=== PATIENT | female | born 1965 | race Caucasian/White ===

== ENCOUNTER 2017-05-20 05:39 | Outpatient (CLI) | payer BC ==
[~2017-05-20] VITALS: Ht 165.1 cm; Wt 97.5 kg
== END 2017-05-20 10:40 ==
LOC: PREOP 05:39
PROVIDERS: ATTEND Surgery
DX: Z01.818 Encounter for other preprocedural examination (principal); Z12.11 Encounter for screening for malignant neoplasm of colon

== ENCOUNTER 2017-05-26 07:59 | Day surgery (SDC) | payer BC ==
[~2017-05-26] VITALS: Ht 165.1 cm; Wt 97.5 kg
[2017-05-26] MEDS ORDERED: LACTATED RINGERS 1,000 ML IV STA (08:12)
[2017-05-26] MEDS ORDERED: LACTATED RINGERS 1,000 ML IV ONE (08:35)
[2017-05-26 08:38] VITALS: BP 131/61
[2017-05-26] MEDS ORDERED: MIDAZOLAM 2 MG/2 ML (VERSED) VIAL ONE (08:51)
[2017-05-26] MEDS ORDERED: proPOfol 200 MG/20 ML (DIPRIVAN) VIAL IV ONE (08:51)
--- NOTE | 2017-05-26 09:15 | History & Physical-Surgical ---
HPO-Surgical History of Present Illness Chief Complaint: Screening Colonoscopy Diagnosis/Surgical Indication: screening Procedure: colonoscopy Date of Surgery: May 26, 2017 Weight (Pounds): 215 Weight (Ounces): 0.0 Height (Feet): 5 Height (Inches): 5.00 Allergies and Home Medications Allergies Coded Allergies: No Known Drug Allergies (Unverified , 05/07/12) Past Npthlqp-Bfhqgu-Jezrcg Hx Patient Social History Alcohol Use: Rarely Uses Recreational Drug Use: No Smoking Status: Never a Smoker Recent Foreign Travel: No Contact w/other who traveled: No Recent Hopitalizations: No Recent Infectious Disease Expo: No Immunizations Up To Date Tetanus Booster (TDap): Unknown Seasonal Allergies Seasonal Allergies: No Respiratory Currently Using CPAP: No Currently Using BIPAP: No Neurological Neuropathy Reproductive System Hx Reproductive Disorders: No Sexually Transmitted Disease: No HIV/AIDS: No FPGA ENGINEER History: Menopausal HEENT Loss of Vision: Denies Hearing Impairment: Denies Exam Vital Signs Vital Signs 05/26/17 08:38 Temp 98.1 Pulse 71 Resp 18 B/P (MAP) 131/61 Pulse Ox 96 O2 Delivery Room Air Capillary Refill : General Appearance: Alert, Oriented X3, No Acute Distress HEENT: PERRLA, EOMI Respiratory: Clear to Auscultation, Normal Air Movement Cardiovascular: Regular Rate, No Murmurs Abdominal: Normal Bowel Sounds, Soft, No Tenderness, No Hepatosplenomegaly Extremities: No Clubbing, No Cyanosis, No Edema, Normal Pulses Skin: No Rashes, No Breakdown, No Significant Lesion Neuro: Normal Gait, Normal Speech, Strength at 5/5 X4 Ext, Cranial Nerves 3-12 NL Psych/Mental Status: Mental Status NL Assessment/Plan Assessment and Plan Screening colonoscopy Again discussed with pt the possible risks and complications; not limited to pain, bleeding, infection and even intestinal perforation. All questions answered to her satisfaction. Problems: HERNESTO GARCIA DO May 26, 2017 09:15
[2017-05-26] MEDS ORDERED: fentaNYL INJECTION 100 MCG/2 ML AMP ONE (09:25)
--- NOTE | 2017-05-26 09:52 | Progress Note-Post Operative ---
Post-Operative Progess Note Surgeon (s)/Business Information Consultant (s) Surgeon HERNESTO GARCIA DO Business Information Consultant: none Pre-Operative Diagnosis screening Post-Operative Diagnosis same plus diverticula internal hemorrhoids mucosal changes in ileum possible melanosis coli Procedure & Operative Findings Date of Procedure 05/26/17 Procedure Performed/Findings colon with cold bx Anesthesia Type IV Sedation by Anesthesia Estimated Blood Loss Estimated blood loss (mL): scant Specimens/Packing Specimens Removed TI biopsy HERNESTO GARCIA DO May 26, 2017 09:52
--- NOTE | 2017-05-26 09:53 | Endoscopy Discharge Instruct ---
Endo Procedure/Findings Findings 1.: Diverticulosis 2.: Internal Hemorrhoids 3.: Other Findings (mucosal changes of terminal ileum) 4.: Other Findings (possible eary melanosis coli) Discharge Instructions - Activity: You might feel a little sleepy until tomorrow. This is due to the medicine you received to relax you. Until tomorrow, you should: NOT drive a car, operate machinery or power tools. NOT drink any alcoholic beverages. NOT make any important decisions or sign importortant papers. Do not return to work until tomorrow, unless otherwise instructed. Resume previous activities tomorrow. Diet: Start by taking liquids. If you tolerate liquids, advance to solid food. make an appointment for one week, Notify Physician - If you experience excessive bleeding, unusual abdominal pain, fever, or chest pain, contact your doctor immediately. [phone] Follow-Up: - I have received and understand the above instructions and will call my doctor if I have any further questions. Patient Signature Date Nurse Signature Other (Relationship) HERNESTO GARCIA DO May 26, 2017 09:53
[2017-05-26 09:55] VITALS: BP 116/71
[2017-05-26 10:25] VITALS: BP 124/73
[2017-05-26 10:40] VITALS: BP 124/73
--- NOTE | 2017-05-26 12:02 | OPERATIVE REPORT ---
DATE OF SERVICE: 05/26/2017 PREOPERATIVE DIAGNOSES: Screening colonoscopy. POSTOPERATIVE DIAGNOSES: 1. Diverticula. 2. Internal hemorrhoids. 3. Mucosal changes at the terminal ileum. 4. Possible early melanosis coli. PROCEDURE: Colonoscopy with cold biopsy. SURGEON: Dr. Ingram. DIE MAKER BENCH STAMPING: None. ANESTHESIA: IV sedation by the anesthesiologist. SPECIMEN: Biopsy from the terminal ileum. BLOOD LOSS: Scant. FLUIDS: Per anesthesia. POSTOPERATIVE CONDITION: Stable. INDICATION FOR PROCEDURE: The patient is a 51-year-old female who has never had a colonoscopy, needed a screening. FINDINGS: The patient had some diverticula just a few scattered throughout the sigmoid colon and terminal ileum noted to have some possible mucosal changes so biopsy was done. Also had some very minimal internal hemorrhoids and some possible melanosis coli. PROCEDURE NOTE: After informed consent was obtained, the patient was brought to the endoscopy suite and placed in the left lateral decubitus position. She is administered IV sedation by the anesthesiologist and vitals monitored the entire time by the anesthesiologist. Scope was then inserted, pushed all the way about 150 cm, able to get all the way to cecum. On the way in noted some diverticula and took a picture, able to get all the way to the cecum, took a picture of the appendiceal orifice and then able to get into the terminal ileum. Mucosa in the terminal ileum looked a little bit like had some changes. The villi were kind of thickened, there is no erythema or ulcers. Elected to do a biopsy. did a biopsy here and then slowly withdrew the scope insufflating to look circumferentially of the sarmiento, looking at the cecum up the ascending colon to the hepatic flexure. Saw some possible melanosis changes, took a picture of this as well. Continued down the transverse colon to the splenic flexure, into the descending colon and down into the sigmoid. Here we saw some diverticula. There was no infection or inflammation or erythema. Continued down to the sigmoid into the rectum, retroflexed rectal vault, saw some minimal internal hemorrhoids, took a picture of this and then removed the scope. The patient tolerated the procedure and she was recovered in the endoscopy suite. Job ID: [id number] DocumentID: [id number] Dictated Date: 05/26/2017 09:56:58 Radiology Director Date: 05/26/2017 12:01:23 Dictated By: HERNESTO INGRAM DO
== END 2017-05-26 10:40 | disposition home or self-care (01) ==
LOC: ENDO 07:59
PROVIDERS: ATTEND Surgery
DX: Z12.11 Encounter for screening for malignant neoplasm of colon (principal); K57.30 Diverticulosis of large intestine without perforation or abscess without bleeding; K64.8 Other hemorrhoids; E66.9 Obesity, unspecified; Z68.35 Body mass index [BMI] 35.0-35.9, adult

== ENCOUNTER → 2018-08-11 | Outpatient (CLI) | payer BC ==
[~2018-08-11] MED LIST: IOHEXOL 350 MG/ML 100 ML (OMNIPAQUE 350) VIAL IV ONE; NS 100 ML (IVPB) BAG IV ONE; RECEIVED CONTRAST (Hold Metformin) IV SCH
[2018-08-11 10:56] LABS: BILIRUBIN,URINE NEGATIVE (NEGATIVE); CLARITY,URINE CLEAR; COLOR,URINE YELLOW; GLUCOSE, URINE (UA) 4+ (NEGATIVE); KETONES,URINE 4+ (NEGATIVE); LEUKOCYTE ESTERASE ,URINE NEGATIVE (NEGATIVE); NITRITE,URINE NEGATIVE (NEGATIVE); PH,URINE 6 (5-9); PROTEIN,URINE 3+ (NEGATIVE); UROBILINOGEN,URINE NORMAL (NORMAL)
[2018-08-11 11:07] LABS: BACTERIA,URINE FEW /HPF
[2018-08-11 11:16] LABS: HEMOGLOBIN 13.7 G/DL (11.5-16.0); MEAN PLATELET VOLUME 11.4 FL (7.4-10.4); RED BLOOD COUNT 4.56 10^6/uL (4.35-5.85); WHITE BLOOD COUNT 6.9 10^3/uL (4.3-11.0)
[2018-08-11 11:36] LABS: BILIRUBIN,TOTAL 0.6 MG/DL (0.1-1.0); CALCIUM 9.1 MG/DL (8.5-10.1); CREATININE SERUM 1.33 MG/DL (0.60-1.30); POTASSIUM 4.2 MMOL/L (3.6-5.0); TOTAL PROTEIN 7.2 GM/DL (6.4-8.2)
--- NOTE | 2018-08-11 13:35 | Diagnostic Imaging Report ---
PROCEDURE: CT abdomen and pelvis with contrast. TECHNIQUE: Multiple contiguous axial images were obtained through the abdomen and pelvis after administration of intravenous contrast. DATE: August 11, 2018. COMPARISON: None. INDICATION: 53-year-old female, abdominal pain. FINDINGS: There is very mild dependent atelectasis in the visualized lung bases. The heart is not enlarged. There is no identified pericardial effusion. The liver is normal in size and contour. The liver appears diffusely decreased in attenuation suggesting diffuse fatty infiltration of the liver. The outer liver contours are not grossly nodular. The main, right, and left portal veins are patent. There is no identified liver lesion. The gallbladder is unremarkable. There is no identified intrahepatic or extrahepatic bile duct dilation. The main pancreatic duct is not abnormally dilated. Unremarkable appearance of the pancreatic parenchyma. The spleen is normal in size. The adrenal glands are unremarkable. Unremarkable appearance of the renal parenchyma. The urinary collecting systems are not distended. There is no identified renal or ureteral stone. The urinary bladder is unremarkable in appearance. The intestinal tract is not distended. The appendix is best seen on axial image 57 and adjacent sequential images. There is no evidence of acute appendicitis. There is no free intraperitoneal air. There is no drainable fluid collection. There is no free pelvic fluid. There is no identified abnormally enlarged lymph node within the abdomen or pelvis which meets CT size criteria for adenopathy. There are degenerative changes of the lumbar spine. There is mild grade 1 anterolisthesis of L4 on L5 relating to facet degenerative changes. There is no identified acute bony abnormality. IMPRESSION: CT ABDOMEN AND PELVIS. 1. The liver appears diffusely low in attenuation suggesting possible diffuse fatty infiltration of the liver. 2. No identified acute abnormality within the abdomen or pelvis. Dictated by: Dictated on workstation # [id number]
== END ==
LOC: RAD 10:35
PROVIDERS: ATTEND Internal Medicine
DX: D64.9 Anemia, unspecified (principal); R53.83 Other fatigue; R10.84 Generalized abdominal pain
CPT/HCPCS: 36415; 74177; 80053; 81000; 82150; 82728; 83036; 83540; 83690; 85027; 85652; 86141

== ENCOUNTER → 2021-06-12 | Outpatient (CLI) | payer BC ==
--- NOTE | 2021-06-12 15:49 | Diagnostic Imaging Report ---
INDICATION: Routine screening. COMPARISON: No prior mammograms are available for comparison. This is a baseline study. EXAMINATION: 2D and 3D bilateral screening mammography was performed with CAD. The current study was also evaluated with a Computer Aided Detection (CAD) system. FINDINGS: Scattered fibroglandular densities are identified bilaterally. No mass or malignant-appearing microcalcifications are seen. Axillae are unremarkable. IMPRESSION: No mammographic features suspicious for malignancy are identified. ACR BI-RADS Category 1: Negative. Result letter will be mailed to the patient. Note: At least 10% of breast cancer is not imaged by mammography. Dictated by: Dictated on workstation # [id number]
== END ==
LOC: RAD 09:00
PROVIDERS: ATTEND Internal Medicine
DX: Z12.31 Encounter for screening mammogram for malignant neoplasm of breast (principal)
CPT/HCPCS: 77063; 77067

== ENCOUNTER 2021-10-22 09:01 | Outpatient (RCR) | payer BC ==
[2021-10-12 09:21] VITALS: BP 109/53
[2021-10-12] MEDS: IRON SUCROSE 200 MG/10 ML (VENOFER) VIAL IV SCH (09:30)
[2021-10-14] MEDS: IRON SUCROSE 200 MG/10 ML (VENOFER) VIAL IV SCH (09:21)
[2021-10-14 09:55] VITALS: BP 108/71
[2021-10-16 09:00] VITALS: BP 116/71
[2021-10-16] MEDS: IRON SUCROSE 200 MG/10 ML (VENOFER) VIAL IV SCH (09:09)
[2021-10-19] MEDS: IRON SUCROSE 200 MG/10 ML (VENOFER) VIAL IV SCH (09:26)
[2021-10-19 10:00] VITALS: BP 124/59
[~2021-10-22] VITALS: Ht 165.1 cm; Wt 81.8 kg
[2021-10-22 09:10] VITALS: BP 123/53
[2021-10-22] MEDS: IRON SUCROSE 200 MG/10 ML (VENOFER) VIAL IV SCH (09:19)
== END 2021-10-26 | disposition home or self-care (01) ==
LOC: SDC 09:01
PROVIDERS: ATTEND Internal Medicine
DX: E61.1 Iron deficiency (principal)
CPT/HCPCS: 96365

== ENCOUNTER 2021-11-25 08:46 | Outpatient (RCR) | payer BC ==
[2021-11-23 09:20] VITALS: BP 128/55
[2021-11-23] MEDS: IRON SUCROSE 200 MG/10 ML (VENOFER) VIAL IV SCH (09:51)
[~2021-11-25] VITALS: Ht 165.1 cm; Wt 81.8 kg
[2021-11-25 08:45] VITALS: BP 130/71
[2021-11-25] MEDS: IRON SUCROSE 200 MG/10 ML (VENOFER) VIAL IV SCH (09:15)
== END 2021-11-26 | disposition home or self-care (01) ==
LOC: SDC 08:46
PROVIDERS: ATTEND Internal Medicine
DX: E61.1 Iron deficiency (principal)
CPT/HCPCS: 96365

== ENCOUNTER 2021-12-02 09:01 | Outpatient (RCR) | payer BC ==
[2021-11-27 09:02] VITALS: BP 122/71
[2021-11-30 08:50] VITALS: BP 105/53
[~2021-12-02 09:01] MED LIST changes: -IOHEXOL 350 MG/ML 100 ML (OMNIPAQUE 350) VIAL IV ONE; +IRON SUCROSE 200 MG/10 ML (VENOFER) VIAL IV SCH; -NS 100 ML (IVPB) BAG IV ONE; -RECEIVED CONTRAST (Hold Metformin) IV SCH
[2021-12-02] MEDS ORDERED: IRON SUCROSE 200 MG/10 ML (VENOFER) VIAL IV SCH (09:04)
[2021-12-02 09:30] VITALS: BP 112/48
== END 2021-12-02 09:45 | disposition home or self-care (01) ==
LOC: SDC 09:01
PROVIDERS: ATTEND Internal Medicine
DX: E61.1 Iron deficiency (principal)
CPT/HCPCS: 96365

== ENCOUNTER → 2023-07-25 | Outpatient (CLI) | payer BC ==
--- NOTE | 2023-07-25 08:47 | Diagnostic Imaging Report ---
INDICATION: Routine screening. COMPARISON: 06/12/2021. TECHNIQUE: 2D and 3D bilateral screening mammography was performed with CAD. FINDINGS: Scattered fibroglandular densities are identified bilaterally. The parenchymal pattern is stable. No mass or malignant-appearing microcalcifications are identified. The axillae are unremarkable. IMPRESSION: No mammographic features suspicious for malignancy are identified. ACR BI-RADS Category 1: Negative. Result letter will be mailed to the patient. Note: At least 10% of breast cancer is not imaged by mammography. Dictated by: Dictated on workstation # [id number]
== END ==
LOC: RAD 07:20
PROVIDERS: ATTEND Internal Medicine
DX: Z12.31 Encounter for screening mammogram for malignant neoplasm of breast (principal)
CPT/HCPCS: 77063; 77067